=== PATIENT | female | born 1955 | race Native Hawaiian/Other Pacific Islander ===

== ENCOUNTER 2018-12-02 13:53 | Outpatient (CLI) | payer OTHER ==
[~2018-12-02 13:53] MED LIST: ASPIRIN325 M2 PO; CITALOPRAM20 MG PO; FLUC150T PO; FURO20TA67 PO; FUROSEMIDE40 MG PO; HUMALOG100 MG/ML SC; INSUSUS SC; KLOR-CON M2020 MEQ PO; LEVEMIR SC; LISI20TA11 PO; MELOXICAM7.5 MG PO; METF850T PO; TRIM800T12 PO
== END 2018-12-02 19:33 | disposition home or self-care (01) ==
LOC: RAD 13:53
DX: J20.8 Acute bronchitis due to other specified organisms (principal)